=== PATIENT | female | born 1980 | race Caucasian/White ===

== ENCOUNTER 2018-10-21 11:23 | Emergency (ER) | payer OTHER ==
[~2018-10-21] VITALS: Ht 170.2 cm; Wt 127.0 kg
[~2018-10-21 11:23] MED LIST: AFLURIA 2045 MCG/0.4; ATIVAN PO; HYDROCODON-ACE1 EAC7 PO; IBUPROFEN 600600 M1 PO; KEFLEX500 MG PO; MACROBID 100 M100 M1 PO; NOHOMEMEDICATIONS; NORCO 5-325 TA1 EACH PO; ONDANSETRON HCL4 M2 PO; PNEUMOVAX25 MCG/0.5
[2018-10-21 12:32] VITALS: BP 155/98
[2018-10-21] MEDS ORDERED: NORFLEX100 MG PO (12:47)
[2018-10-21] MEDS ORDERED: TRAMADOL 50 MG50 MG PO (12:47)
[2018-10-21] MEDS ORDERED: NAPROSYN500 MG PO (12:47)
== END 2018-10-21 13:06 | disposition home or self-care (01) ==
LOC: ER 11:23
DX: S39.012A Strain of muscle, fascia and tendon of lower back, initial encounter (principal); F17.210 Nicotine dependence, cigarettes, uncomplicated; Z88.7 Allergy status to serum and vaccine; X58.XXXA Exposure to other specified factors, initial encounter; Y93.89 Activity, other specified; Y92.89 Other specified places as the place of occurrence of the external cause; Y99.8 Other external cause status